=== PATIENT | male | born 1990 | race Caucasian/White ===

== ENCOUNTER 2024-09-06 08:48 | Emergency (ER) | payer MEDICAID ==
[~2024-09-06] VITALS: Ht 167.6 cm; Wt 91.0 kg
[2024-09-06 08:53] VITALS: O2SAT 99
[2024-09-06] MEDS: METHYLPREDNISOLONE SOD SUCC 125MG/2ML (ACT-O-VIAL) IV ONE (09:42)
[2024-09-06] MEDS: DIPHENHYDRAMINE 50MG/ML VIAL IV ONE (09:43)
[2024-09-06] MEDS: FAMOTIDINE 20MG/2ML VIAL IV ONE (09:43)
[2024-09-06] MEDS ORDERED: EPIN0.3P3 IM (11:51)
[2024-09-06] MEDS ORDERED: P50 PO (11:51)
[2024-09-06] MEDS ORDERED: B50 PO (11:51)
[2024-09-06 12:07] VITALS: BP 142/93; PULSE 76; RESP 16; TEMP 36.9; O2SAT 99
== END 2024-09-06 12:25 | disposition home or self-care (01) ==
LOC: ER 08:48
DX: T78.40XA Allergy, unspecified, initial encounter (principal); Z79.52 Long term (current) use of systemic steroids; Z79.899 Other long term (current) drug therapy; Y92.89 Other specified places as the place of occurrence of the external cause
CPT/HCPCS: 96374; 96375; 99284; J1200; J1308; J2919; Z7610